=== PATIENT | female | born 1975 | race Caucasian/White ===

== ENCOUNTER 2016-08-04 19:52 | Emergency (ER) | payer SELFPAY ==
[2016-08-04] MEDS ORDERED: NORMAL SALINE 1000 ML 1,000 ML IV PRN (21:34)
[2016-08-04] MEDS ORDERED: MORPHINE SULFATE 10 MG/ML INJ IV ONE (21:34)
[2016-08-04] MEDS ORDERED: ONDANSETRON HCL INJ/PF 4 MG/2 ML SDV IV ONE (21:34)
--- NOTE | 2016-08-04 21:38 | ER Document Report ---
ED GI/ - General Chief Complaint: Abdominal Pain Stated Complaint: ABDOMINAL PAIN Time Seen by Provider: 08/04/16 21:27 Mode of Arrival: Ambulatory Information source: Patient TRAVEL OUTSIDE OF THE [place] IN LAST 30 DAYS: No - HPI Patient complains to provider of: Abdominal pain, Vomiting Onset: This morning Timing/Duration: Sudden Quality of pain: Achy Severity at maximum: Moderate Severity in ED: Moderate Pain Level: 3 Location: RLQ Vaginal bleeding (Compared to normal period): None Associated symptoms: Nausea, Vomiting Exacerbated by: Denies Relieved by: Denies Similar symptoms previously: No Recently seen / treated by doctor: No Notes: 08/04/16 21:36 Is a 40-year-old female who presents to the emergency room complaining of right lower quadrant abdominal pain with nausea and vomiting that has been going on for the past hours, she denies any urinary symptoms, no vaginal discharge or irregular bleeding, no sick contacts, no questionable food intake, no fever, patient has a history of a partial hysterectomy and a cholecystectomy - Related Data Allergies/Adverse Reactions: dicyclomine [From Bentyl] Allergy (Verified 08/04/16 20:16) ketorolac [From Toradol] Allergy (Verified 08/04/16 20:16) metoclopramide [From Reglan] Allergy (Verified 08/04/16 20:16) promethazine [From Phenergan] Allergy (Verified 08/04/16 20:16) Sulfa (Sulfonamide Antibiotics) Allergy (Verified 08/04/16 20:16) tramadol [From Ultram] Allergy (Verified 08/04/16 20:16) Past Medical History - General Information source: Patient - Social History Smoking Status: Never Smoker Family History: Reviewed & Not Pertinent Renal/ Medical History: Denies: Hx Peritoneal Dialysis Review of Systems - Review of Systems Constitutional: No symptoms reported EENT: No symptoms reported Cardiovascular: No symptoms reported Respiratory: No symptoms reported Gastrointestinal: See HPI Genitourinary: No symptoms reported Female Genitourinary: No symptoms reported Musculoskeletal: No symptoms reported Skin: No symptoms reported Hematologic/Lymphatic: No symptoms reported Neurological/Psychological: No symptoms reported -: Yes All other systems reviewed and negative Physical Exam - Vital signs Vitals: Temp Pulse Resp BP Pulse Ox 98.4 F 86 18 132/76 H 98 08/05/16 00:05 08/05/16 00:05 08/05/16 00:05 08/05/16 00:08/05/16 00:05 Interpretation: Normal - General General appearance: Appears well, Alert - HEENT Head: Normocephalic, Atraumatic Eyes: Normal Pupils: PERRL - Respiratory Respiratory status: No respiratory distress Chest status: Nontender Breath sounds: Normal Chest palpation: Normal - Cardiovascular Rhythm: Regular Heart sounds: Normal auscultation Murmur: No - Abdominal Inspection: Normal Distension: No distension Bowel sounds: Normal Tenderness: Tender - Right Lower quadrant tenderness Organomegaly: No organomegaly - Back Back: Normal, Nontender - Extremities General upper extremity: Normal inspection, Nontender, Normal color, Normal ROM , Normal temperature General lower extremity: Normal inspection, Nontender, Normal color, Normal ROM , Normal temperature, Normal weight bearing. No: Adam's sign - Neurological Neuro grossly intact: Yes Cognition: Normal Orientation: AAOx4 [place] Coma Scale Eye Opening: Spontaneous [place] Coma Scale Verbal: Oriented Agustin Coma Scale Motor: Obeys Commands Agustin Coma Scale Total: 15 Speech: Normal Motor strength normal: LUE, RUE, LLE, RLE Sensory: Normal - Psychological Associated symptoms: Normal affect, Normal mood - Skin Skin Temperature: Warm Skin Moisture: Dry Skin Color: Normal Location of irregularity: Extremities - Bilateral upper extremities with several scabbed excoriated wounds, no drainage, no erythema Course - Re-evaluation Re-evalutation: 08/05/16 00:00 Several attempts were made to gain IV access, however these attempts were unsuccessful, patient is approximately 15 minutes from going to CAT scan and now wishes to sign out AGAINST MEDICAL ADVICE, I had a discussion with patient regarding this and she stated she was willing to stay and have a CAT scan completed, however soon as I walked out of the room she asked nursing staff for the form was for her to sign out AGAINST MEDICAL ADVICE, while I was speaking with patient I discussed with her the complications that could be associated with appendicitis as far as a rupture, sepsis, debility and/or , also discussed other abdominal pathology that could have serious and/or fatal complications, she stated she knew this was a complication and she was willing to risk this, that she will follow-up with her primary care provider in the morning, so I believe this is a poor decision on patient's part I do not believe she lacks the capacity to sign out AGAINST MEDICAL ADVICE and therefore was to do so but advised to return at any time should she wish to complete her medical care - Vital Signs Vital signs: Temp Pulse Resp BP Pulse Ox 98.4 F 86 18 132/76 H 98 08/05/16 00:05 08/05/16 00:05 08/05/16 00:05 08/05/16 00:05 08/05/16 00:05 - Laboratory Result Diagrams: 08/04/16 22:55 08/04/16 22:55 Laboratory results interpreted by me: 08/04/16 08/04/16 22:55 22:55 Hgb 11.3 L Hct 33.9 L RDW 14.3 H Eosinophils % 6.7 H Glucose 242 H AST 50 H Discharge - Discharge Clinical Impression: Abdominal pain Qualifiers: Abdominal location: right lower quadrant Qualified Code(s): R10.31 - Right lower quadrant pain Disposition: AGAINST MEDICAL ADVICE Instructions: Abdominal Pain ([facility]), Observation for Appendicitis ([facility]) Additional Instructions: You are indicating that you wish to sign out AGAINST MEDICAL ADVICE prior to having your evaluations completed. We discussed the risks and complications associated with doing so. You are welcome to return to the emergency room at any time should you wish to complete your evaluation and care.
[2016-08-04 23:22] LABS: ALANINE AMINOTRANSFERASE 35 U/L (9-52); ALKALINE PHOSPHATASE 46 U/L (38-126); ANION GAP 14 (5-19); ASPARTATE AMINO TRANSFERASE 50 U/L (14-36); BILIRUBIN,DIRECT 0.3 mg/dL (0.0-0.4); BILIRUBIN,TOTAL 0.5 mg/dL (0.2-1.3); BLOOD UREA NITROGEN 10 mg/dL (7-20); CALCIUM 9.1 mg/dL (8.4-10.2); CARBON DIOXIDE 22 mmol/L (22-30); CHLORIDE 102 mmol/L (98-107); CREATININE RESULT 0.63 mg/dL (0.52-1.25); GLUCOSE 242 mg/dL (75-110); LIPASE 69.3 U/L (23-300); POTASSIUM 3.9 mmol/L (3.6-5.0); TOTAL PROTEIN 7.8 g/dL (6.3-8.2)
[2016-08-04 23:24] LABS: ABSOLUTE BASOPHILS # (AUTO) 0.1 10^3/uL (0.0-0.2); ABSOLUTE EOSINOPHILS # (AUTO) 0.4 10^3/uL (0.0-0.6); ABSOLUTE LYMPHOCYTES (AUTO) 1.3 10^3/uL (0.5-4.7); ABSOLUTE MONOCYTES (AUTO) 0.5 10^3/uL (0.1-1.4); ABSOLUTE NEUT (AUTO) 3.5 10^3/uL (1.7-8.2); BASOPHILS % (AUTO) 0.9 % (0-2); EOSINOPHILS % (AUTO) 6.7 % (0-6); HEMATOCRIT 33.9 % (36.0-47.0); HEMOGLOBIN 11.3 g/dL (12.0-15.5); LYMPHOCYTES % (AUTO) 22.4 % (13-45); MEAN CORPUSCULAR HEMOGLOBIN 28.6 pg (27.0-33.4); MEAN CORPUSCULAR HGB CONC 33.4 g/dL (32.0-36.0); MEAN CORPUSCULAR VOLUME 86 fl (80-97); MONOCYTES % (AUTO) 9.3 % (3-13); RED BLOOD COUNT 3.97 10^6/uL (3.72-5.28); RED CELL DISTRIBUTION WIDTH 14.3 % (11.5-14.0); SEGMENTED NEUTROPHILS % (AUTO) 60.7 % (42-78); WHITE BLOOD COUNT 5.8 10^3/uL (4.0-10.5)
[2016-08-04] MEDS ORDERED: OXYCODONE-ACETAMINOPHEN 5-325 MG TABLET PO ONE (23:59)
[2016-08-04] MEDS ORDERED: ONDANSETRON 4 MG TAB.RAPDIS SL ONE (23:59)
[2016-08-05 00:34] VITALS: BP 132/76
== END 2016-08-05 00:10 | disposition left against medical advice (07) ==
LOC: ER 19:52
DX: R10.31 Right lower quadrant pain (principal); R11.2 Nausea with vomiting, unspecified
CPT/HCPCS: 36415; 80053; 83690; 85025; 99284

== ENCOUNTER 2016-08-30 14:39 | Emergency (ER) | payer SELFPAY ==
--- NOTE | 2016-08-30 15:29 | ER Document Report ---
ED Medical Screen (RME) - General Mode of Arrival: Ambulatory Information source: Patient TRAVEL OUTSIDE OF THE [place] IN LAST 30 DAYS: No <BURT ALONZO - Last Filed: 08/30/16 15:23> <JOSE DOMINGUEZ - Last Filed: 08/31/16 14:40> - General Chief Complaint: Abdominal Pain Stated Complaint: ABDOMINAL PAIN/VOMITING Time Seen by Provider: 08/30/16 15:23 Notes: 40 yo female presnets to ed for abdominal pain for 9 hourswith nausea and vomitingx4 today. States she has passed out x2 due to the pain. Stated she has had pain like this before and was diagnosed with c-diff a year ago but no diarrhea at this time. States she just finished a regime of Cipro 2 days ago for UTI. Hysterectomy in 2009 but still has ovaries. Hx of DM type 2 HTN, asthma, RLS, and depression. I assessed this patient in [facility]. She will have a history and physical and further treatment in the ED by another provider. (BURT ALONZO) - Related Data Allergies/Adverse Reactions: dicyclomine [From Bentyl] Allergy (Verified 08/30/16 14:47) ketorolac [From Toradol] Allergy (Verified 08/30/16 14:47) metoclopramide [From Reglan] Allergy (Verified 08/30/16 14:47) promethazine [From Phenergan] Allergy (Verified 08/30/16 14:47) Sulfa (Sulfonamide Antibiotics) Allergy (Verified 08/30/16 14:47) tramadol [From Ultram] Allergy (Verified 08/30/16 14:47) Past Medical History Renal/ Medical History: Denies: Hx Peritoneal Dialysis <BURT ALONZO - Last Filed: 08/30/16 15:23> Course - Laboratory Result Diagrams: 08/30/16 18:57 08/30/16 18:57 <JOSE DOMINGUEZ - Last Filed: 08/31/16 14:40> - Vital Signs Vital signs: Temp Pulse Resp BP Pulse Ox 98.3 F 79 20 132/94 H 100 08/30/16 15:37 08/30/16 15:37 08/30/16 15:37 08/30/16 15:37 08/30/16 15:37 - Laboratory Laboratory results interpreted by me: 08/30/16 08/30/16 08/30/16 15:45 18:32 18:57 RDW 14.3 H Eosinophils % 6.3 H Glucose POC Glucose 164 H AST Urine Protein 30 H 08/30/16 18:57 RDW Eosinophils % Glucose 172 H POC Glucose AST 42 H Urine Protein Doctor's Discharge <BURT ALONZO - Last Filed: 08/30/16 15:23> <JOSE DOMINGUEZ - Last Filed: 08/31/16 14:40> - Discharge Clinical Impression: Lower abdominal pain, Vomiting and diarrhea Condition: Stable Disposition: HOME, SELF-CARE Additional Instructions: Take the medication given for nausea, start with bland foods, drink plenty of fluids and rest. Your cat scan and ultrasound show no concerning abnormalities. This is probably viral and should resolve with time. Follow up with Primary Care. Return to the ED for any concerning symptoms - see below Observation for Appendicitis At this time, the abdominal pain does not seem to be appendicitis. Our next "test" will be passage of time. If you have early appendicitis, signs will appear to help us make the diagnosis. Most of the time, the pain goes away. In these cases, the pain is usually due to a virus in the lymph glands near the appendix, or due to an ovarian cyst or ovulation. Unless the pain is gone, you should come back for a recheck. This is usually done in 8 to 12 hours. Be sure you understand your follow-up instructions. Come back immediately if: (1) the pain becomes much more severe and sharply increases with movement or coughing, (2) vomiting becomes frequent, (3) there is blood in the vomit, urine, or bowel movements, (4) there are shaking chills or fever, or (5) the abdomen becomes more distended or swollen. Prescriptions: Ondansetron [Zofran Odt 4 mg Tablet] 1 - 2 tab PO Q4H PRN #20 tab.rapdis PRN Reason: For Nausea/Vomiting Referrals: [facility] [Provider Group] - Follow up as needed KAT LI MD [ACTIVE STAFF] - Follow up as needed FREDDIE RAVI MD [ACTIVE STAFF] - Follow up as needed DEJA GOLDMAN MD [ACTIVE STAFF] - Follow up as needed
[2016-08-30 15:38] VITALS: BP 132/94
[2016-08-30 16:08] LABS: APPEARANCE,URINE SLIGHTLY-CLOUDY; BILIRUBIN,URINE NEGATIVE (NEGATIVE); GLUCOSE, URINE NEGATIVE (NEGATIVE); KETONES,URINE NEGATIVE (NEGATIVE); LEUKOCYTE ESTERASE,URINE NEGATIVE (NEGATIVE); NITRITE,URINE NEGATIVE (NEGATIVE); PROTEIN,URINE 30 mg/dL (NEGATIVE); URINE SPECIFIC GRAVITY 1.026; UROBILINOGEN,URINE NEGATIVE mg/dL (<2.0)
[2016-08-30 16:25] LABS: BACTERIA,URINE TRACE /HPF
[2016-08-30] MEDS ORDERED: MORPHINE SULFATE 10 MG/ML INJ IV ONE ×3 (17:00→22:10)
[2016-08-30] MEDS ORDERED: ONDANSETRON HCL INJ/PF 4 MG/2 ML SDV IV ONE (17:00)
--- NOTE | 2016-08-30 17:00 | ER Document Report ---
ED GI/ <PRISCILLA SCRUGGS - Last Filed: 08/31/16 04:43> - General Mode of Arrival: Ambulatory Information source: Patient TRAVEL OUTSIDE OF THE [place] IN LAST 30 DAYS: No - HPI Patient complains to provider of: Abdominal pain, Vomiting Onset: This morning Timing/Duration: Persistent Quality of pain: Achy, Cramping, Sharp Severity at maximum: Severe Severity in ED: Severe Pain Level: 5 Location: LLQ, RLQ Vaginal bleeding (Compared to normal period): None LMP: hysterectomy Associated symptoms: Nausea, Vomiting Exacerbated by: Movement, Walking, Coughing Relieved by: Denies Similar symptoms previously: Yes Recently seen / treated by doctor: No <BURT ALONZO - Last Filed: 08/31/16 09:38> - General Chief Complaint: Abdominal Pain Stated Complaint: ABDOMINAL PAIN/VOMITING Time Seen by Provider: 08/30/16 15:23 Notes: 1-year-old female presents to ED for abdominal pain nausea and vomiting 9 hours. She states she vomited 4 times today. States she tested 2 for the pain. States she had pain like this before about a year ago when she was diagnosed with C. difficile but does not have any diarrhea at this time. States she just finished a resume for Cipro 2 days ago for UTI. (BURT ALONZO) - Related Data Allergies/Adverse Reactions: dicyclomine [From Bentyl] Allergy (Verified 08/30/16 14:47) ketorolac [From Toradol] Allergy (Verified 08/30/16 14:47) metoclopramide [From Reglan] Allergy (Verified 08/30/16 14:47) promethazine [From Phenergan] Allergy (Verified 08/30/16 14:47) Sulfa (Sulfonamide Antibiotics) Allergy (Verified 08/30/16 14:47) tramadol [From Ultram] Allergy (Verified 08/30/16 14:47) Past Medical History - General Information source: Patient - Social History Smoking Status: Former Smoker Cigarette use (# per day): No Chew tobacco use (# tins/day): No Smoking Education Provided: No Frequency of alcohol use: None Drug Abuse: None Lives with: Family Family History: DM, Hypertension Patient has suicidal ideation: No Patient has homicidal ideation: No - Past Medical History Cardiac Medical History: Reports: Hx Hypertension Pulmonary Medical History: Reports: Hx Asthma EENT Medical History: Reports: None Neurological Medical History: Reports: None Endocrine Medical History: Reports: Hx Diabetes Mellitus Type 2 Renal/ Medical History: Reports: None Malignancy Medical History: Reports: None Musculoskeltal Medical History: Reports Hx Arthritis, Reports Hx Restless Leg Syndrome Skin Medical History: Reports None Psychiatric Medical History: Reports: Hx Depression Traumatic Medical History: Reports: None Infectious Medical History: Reports: None Past Surgical History: Reports: Hx Cholecystectomy, Hx Hysterectomy - Immunizations Immunizations up to date: Yes Hx Diphtheria, Pertussis, Tetanus Vaccination: Yes <BURT ALONZO - Last Filed: 08/31/16 09:38> Review of Systems - Review of Systems Constitutional: No symptoms reported EENT: No symptoms reported Cardiovascular: No symptoms reported Respiratory: No symptoms reported Gastrointestinal: Abdominal pain, Nausea, Vomiting Genitourinary: No symptoms reported Female Genitourinary: No symptoms reported Musculoskeletal: No symptoms reported Skin: No symptoms reported Hematologic/Lymphatic: No symptoms reported Neurological/Psychological: No symptoms reported -: Yes All other systems reviewed and negative <BURT ALONZO - Last Filed: 08/31/16 09:38> Physical Exam - Vital signs Interpretation: Normal - General General appearance: Appears well, Alert - HEENT Head: Normocephalic, Atraumatic Eyes: Normal Pupils: PERRL - Respiratory Respiratory status: No respiratory distress Chest status: Nontender Breath sounds: Normal Chest palpation: Normal - Cardiovascular Rhythm: Regular Heart sounds: Normal auscultation Murmur: No - Abdominal Inspection: Normal Distension: No distension Bowel sounds: Normal Tenderness: Tender. No: McBurney's point, Cyr's sign, Guarding, Rebound Organomegaly: No organomegaly - Back Back: Normal, Nontender - Extremities General upper extremity: Normal inspection, Nontender, Normal color, Normal ROM , Normal temperature General lower extremity: Normal inspection, Nontender, Normal color, Normal ROM , Normal temperature, Normal weight bearing. No: Adam's sign - Neurological Neuro grossly intact: Yes Cognition: Normal Orientation: AAOx4 Agust[place] Coma Scale Eye Opening: Spontaneous [place] Coma Scale Verbal: Oriented [place] Coma Scale Motor: Obeys Commands Agustin Coma Scale Total: 15 Speech: Normal Motor strength normal: LUE, RUE, LLE, RLE Sensory: Normal - Psychological Associated symptoms: Normal affect, Normal mood - Skin Skin Temperature: Warm Skin Moisture: Dry Skin Color: Normal <BURT ALONZO - Last Filed: 08/31/16 09:38> - Vital signs Vitals: Temp Pulse Resp BP Pulse Ox 99.0 F 76 18 125/81 98 08/30/16 14:48 08/30/16 14:48 08/30/16 14:48 08/30/16 14:48 08/30/16 14:48 Course - Laboratory Result Diagrams: 08/30/16 18:57 08/30/16 18:57 <PRISCILLA SCRUGGS - Last Filed: 08/31/16 04:43> - Laboratory Result Diagrams: 08/30/16 18:57 08/30/16 18:57 <BURT ALONZO - Last Filed: 08/31/16 09:38> - Re-evaluation Re-evalutation: 08/30/16 CBC, chemistry, urinalysis are unremarkable. CAT scan was already ordered and is resulted, shows normal appendix, no acute abnormalities of the abdomen and pelvis. Reviewed this with patient and significant other at bedside. Patient still complaining of right lower quadrant pain, this is actually nonspecific on reexamination with no focal tenderness or guarding suggesting acute abdominal abnormality. I actually of a very low suspicion of acute abdomen at this time. Patient is very well-appearing on examination. Unable to visualize ovaries on CAT scan, patient insists that she had a partial hysterectomy and she wants her ovaries evaluated, I discussed how her presentation is low risk for ovarian torsion without any current symptoms, patient still request that she get the ultrasound. Ultrasound performed, shows no ovaries, uterus, or other abnormality. Patient is obese, it is possible these could not be visualized, I did discuss this with patient, however again I have very low suspicion of any acute abnormality with reexamination of patient, unremarkable abdomen now, suspect patient has viral syndrome with vomiting, diarrhea, and abdominal pain. Patient asking for referral to both [facility] and primary care, this was provided along with [facility] for nausea/vomiting, discussed rehydration, follow-up , return precautions, patient states understanding and agreement. (PRISCILLA SCRUGGS) 08/30/16 19:18 Report given to Priscilla DEE concerning history physical and assessment up to this point. Patient is awaiting lab results after difficulty getting her labs so that she can get her CT abdomen and pelvis. She has been medicated with morphine 4 mg 2 Benadryl 50 mg IV and Zofran 8 mg IV. (BURT ALONZO) - Vital Signs Vital signs: Temp Pulse Resp BP Pulse Ox 98.3 F 79 20 132/94 H 100 08/30/16 15:37 08/30/16 15:37 08/30/16 15:37 08/30/16 15:37 08/30/16 15:37 - Laboratory Laboratory results interpreted by me: 08/30/16 08/30/16 08/30/16 15:45 18:32 18:57 RDW 14.3 H Eosinophils % 6.3 H Glucose POC Glucose 164 H AST Urine Protein 30 H 08/30/16 18:57 RDW Eosinophils % Glucose 172 H POC Glucose AST 42 H Urine Protein Discharge <PRISCILLA SCRUGGS - Last Filed: 08/31/16 04:43> <BURT ALONZO - Last Filed: 08/31/16 09:38> - Discharge Clinical Impression: Lower abdominal pain, Vomiting and diarrhea Condition: Stable Disposition: HOME, SELF-CARE Additional Instructions: Take the medication given for nausea, start with bland foods, drink plenty of fluids and rest. Your cat scan and ultrasound show no concerning abnormalities. This is probably viral and should resolve with time. Follow up with Primary Care. Return to the ED for any concerning symptoms - see below Observation for Appendicitis At this time, the abdominal pain does not seem to be appendicitis. Our next "test" will be passage of time. If you have early appendicitis, signs will appear to help us make the diagnosis. Most of the time, the pain goes away. In these cases, the pain is usually due to a virus in the lymph glands near the appendix, or due to an ovarian cyst or ovulation. Unless the pain is gone, you should come back for a recheck. This is usually done in 8 to 12 hours. Be sure you understand your follow-up instructions. Come back immediately if: (1) the pain becomes much more severe and sharply increases with movement or coughing, (2) vomiting becomes frequent, (3) there is blood in the vomit, urine, or bowel movements, (4) there are shaking chills or fever, or (5) the abdomen becomes more distended or swollen. Prescriptions: Ondansetron [Zofran Odt 4 mg Tablet] 1 - 2 tab PO Q4H PRN #20 tab.rapdis PRN Reason: For Nausea/Vomiting Referrals: [facility] [Provider Group] - Follow up as needed FREDDIE RAVI MD [ACTIVE STAFF] - Follow up as needed KAT LI MD [ACTIVE STAFF] - Follow up as needed DEJA GOLDMAN MD [ACTIVE STAFF] - Follow up as needed
[2016-08-30] MEDS ORDERED: DIPHENHYDRAMINE HCL 50 MG/ML VIAL IV ONE ×3 (17:01→22:10)
[2016-08-30] MEDS ORDERED: NORMAL SALINE 1000 ML 1,000 ML IV ONE ×2 (19:15)
[2016-08-30 19:24] LABS: ABSOLUTE BASOPHILS # (AUTO) 0.1 10^3/uL (0.0-0.2); ABSOLUTE EOSINOPHILS # (AUTO) 0.3 10^3/uL (0.0-0.6); ABSOLUTE LYMPHOCYTES (AUTO) 1.2 10^3/uL (0.5-4.7); ABSOLUTE MONOCYTES (AUTO) 0.5 10^3/uL (0.1-1.4); ABSOLUTE NEUT (AUTO) 3.4 10^3/uL (1.7-8.2); BASOPHILS % (AUTO) 1.1 % (0-2); EOSINOPHILS % (AUTO) 6.3 % (0-6); HEMATOCRIT 36.1 % (36.0-47.0); HGB HCT DIFFERENCE -0.1; LYMPHOCYTES % (AUTO) 21.9 % (13-45); MEAN CORPUSCULAR HEMOGLOBIN 27.7 pg (27.0-33.4); MEAN CORPUSCULAR HGB CONC 33.1 g/dL (32.0-36.0); MEAN CORPUSCULAR VOLUME 84 fl (80-97); RED BLOOD COUNT 4.31 10^6/uL (3.72-5.28); RED CELL DISTRIBUTION WIDTH 14.3 % (11.5-14.0); SEGMENTED NEUTROPHILS % (AUTO) 61.7 % (42-78); WHITE BLOOD COUNT 5.4 10^3/uL (4.0-10.5)
[2016-08-30 19:48] LABS: ALANINE AMINOTRANSFERASE 48 U/L (9-52); ALBUMIN 4.3 g/dL (3.5-5.0); ALKALINE PHOSPHATASE 43 U/L (38-126); ANION GAP 15 (5-19); ASPARTATE AMINO TRANSFERASE 42 U/L (14-36); BILIRUBIN,DIRECT 0.4 mg/dL (0.0-0.4); BILIRUBIN,TOTAL 0.5 mg/dL (0.2-1.3); BLOOD UREA NITROGEN 11 mg/dL (7-20); CALCIUM 9.4 mg/dL (8.4-10.2); CARBON DIOXIDE 22 mmol/L (22-30); CHLORIDE 101 mmol/L (98-107); CREATININE RESULT 0.63 mg/dL (0.52-1.25); GLUCOSE 172 mg/dL (75-110); SODIUM 137.8 mmol/L (137-145); TOTAL PROTEIN 8.1 g/dL (6.3-8.2)
--- NOTE | 2016-08-30 21:54 | RADIOLOGY REPORT (SQ) ---
EXAM DESCRIPTION: CT ABD/PELVIS WITH IV ORAL COMPLETED DATE/TIME: 08/30/2016 8:17 pm REASON FOR STUDY: rlq abdominal pain COMPARISON: None. TECHNIQUE: CT scan of the abdomen and pelvis performed using helical scanning technique with dynamic intravenous contrast injection. No oral contrast. Images reviewed with lung, soft tissue, and bone windows. Reconstructed coronal and sagittal MPR images reviewed. Delayed images for evaluation of the urinary system also acquired. All images stored on PACS. All CT scanners at this facility use dose modulation, iterative reconstruction, and/or weight based d osing when appropriate to reduce radiation dose to as low as reasonably achievable (ALARA). [facility]: Dose Right [facility]: CareDose [facility]: Dose Right [facility]: Teradose 4D [facility]: [employer] CONTRAST TYPE AND DOSE: contrast/concentration: Isovue 370.00 mg/ml; Total Contrast Delivered: 100.0 ml; Total Saline Delivered: 72.0 ml RENAL FUNCTION: GFR > 60. RADIATION DOSE: Up-to-date CT equipment and radiation dose reduction techniques were employed. CTDIv ol: 20.9 - 29.9 mGy. DLP: 2641 mGy-cm.. LIMITATIONS: None. FINDINGS: LOWER CHEST: No significant findings. No nodules or infiltrates. LIVER: Normal size. No masses or dilated ducts. SPLEEN: Normal size. No focal lesions. PANCREAS: No masses. No significant calcifications. No adjacent inflammation or peripancreatic fluid collections. Pancreatic duct not dilated. GALLBLADDER: Surgically absent. ADRENAL GLANDS: No significant masses or asymmetry. RIGHT KIDNEY AND URETER: No solid masses. No significant calcifications. No hydronephrosis or hyd roureter. LEFT KIDNEY AND URETER: No solid masses. No significant calcifications. No hydronephrosis or hydr oureter. AORTA AND VESSELS: No aneurysm. No dissection. Renal arteries, SMA, celiac without stenosis. RETROPERITONEUM: No retroperitoneal adenopathy, hemorrhage or masses. BOWEL AND PERITONEAL CAVITY: No masses or inflammatory changes. No free fluid or peritoneal masses. APPENDIX: Normal. PELVIS: No mass or free fluid. Normal bladder. ABDOMINAL WALL: Prior hysterectomy. No hernias. BONES: No significant or acute findings. OTHER: No other significant finding. IMPRESSION: NO ACUTE FINDING IN THE ABDOMEN OR PELVIS ON CT SCAN WITH IV CONTRAST. Normal appendix identified. TECHNICAL DOCUMENTATION: JOB ID: [id number] Quality ID # [id number]: Final reports with documentation of one or more dose reduction techniques (e.g., Au tomated exposure control, adjustment of the mA and/or kV according to patient size, use of iterative reconstruction technique) 2010 [email or web address]- All Rights Reserved
--- NOTE | 2016-08-30 23:46 | RADIOLOGY REPORT (SQ) ---
EXAM DESCRIPTION: U/S NON OB PEL TV W/DOPPLER COMPLETED DATE/TIME: 08/30/2016 11:17 pm REASON FOR STUDY: RLQ pain, hx cysts, vomiting COMPARISON: None. TECHNIQUE: Dynamic and static grayscale images acquired of the pelvis via transvaginal approach and recorded on PACS. Additional selected color Doppler and spectral images recorded. LIMITATIONS: None. FINDINGS: No uterus or ovaries visualized. No free fluid. IMPRESSION: No uterus or ovaries visualized. No free fluid. TECHNICAL DOCUMENTATION: JOB ID: [id number] [employer]- All Rights Reserved
[2016-08-31] MEDS ORDERED: ONDANSETRON ODT 4 MG TAB (6 TAB/DSPK) PO PRN (00:02)
[2016-08-31] MEDS ORDERED: DIPHENHYDRAMINE HCL 50 MG/ML VIAL IV ONE (00:10)
== END 2016-08-31 00:28 | disposition home or self-care (01) ==
LOC: ER 14:39
DX: R10.30 Lower abdominal pain, unspecified (principal); R11.2 Nausea with vomiting, unspecified; R19.7 Diarrhea, unspecified; R05 Cough; I10 Essential (primary) hypertension; E11.9 Type 2 diabetes mellitus without complications; Z88.2 Allergy status to sulfonamides; Z87.891 Personal history of nicotine dependence; Z90.49 Acquired absence of other specified parts of digestive tract; Z90.710 Acquired absence of both cervix and uterus
CPT/HCPCS: 96376; 99284; 96374; 96375; 36415; 82962; 83690; 85025; 80053; 81001; 76830; 93976; 74177; J1200 ×2; J2270; J2405

== ENCOUNTER 2016-09-08 21:27 | Emergency (ER) | payer SELFPAY ==
[2016-09-08 22:06] VITALS: BP 113/81
[2016-09-09 02:31] LABS: ABSOLUTE BASOPHILS # (AUTO) 0.1 10^3/uL (0.0-0.2); ABSOLUTE EOSINOPHILS # (AUTO) 0.5 10^3/uL (0.0-0.6); ABSOLUTE LYMPHOCYTES (AUTO) 1.7 10^3/uL (0.5-4.7); ABSOLUTE MONOCYTES (AUTO) 0.7 10^3/uL (0.1-1.4); ABSOLUTE NEUT (AUTO) 3.8 10^3/uL (1.7-8.2); BASOPHILS % (AUTO) 1.3 % (0-2); HEMATOCRIT 35.4 % (36.0-47.0); HEMOGLOBIN 11.8 g/dL (12.0-15.5); LYMPHOCYTES % (AUTO) 25.5 % (13-45); MEAN CORPUSCULAR HEMOGLOBIN 27.8 pg (27.0-33.4); MEAN CORPUSCULAR HGB CONC 33.3 g/dL (32.0-36.0); MEAN CORPUSCULAR VOLUME 84 fl (80-97); MONOCYTES % (AUTO) 10.1 % (3-13); RED BLOOD COUNT 4.24 10^6/uL (3.72-5.28); RED CELL DISTRIBUTION WIDTH 14.5 % (11.5-14.0); SEGMENTED NEUTROPHILS % (AUTO) 56.1 % (42-78); WHITE BLOOD COUNT 6.7 10^3/uL (4.0-10.5)
[2016-09-09] MEDS ORDERED: ONDANSETRON HCL INJ/PF 4 MG/2 ML SDV IV ONE (02:33)
[2016-09-09] MEDS ORDERED: ACETAMINOPHEN 325 MG TABLET PO ONE (02:33)
[2016-09-09 02:50] LABS: ALANINE AMINOTRANSFERASE 31 U/L (9-52); ALBUMIN 4.2 g/dL (3.5-5.0); ALKALINE PHOSPHATASE 43 U/L (38-126); ANION GAP 15 (5-19); ASPARTATE AMINO TRANSFERASE 28 U/L (14-36); BILIRUBIN,DIRECT 0.3 mg/dL (0.0-0.4); BILIRUBIN,TOTAL 0.5 mg/dL (0.2-1.3); BLOOD UREA NITROGEN 18 mg/dL (7-20); CALCIUM 9.4 mg/dL (8.4-10.2); CARBON DIOXIDE 23 mmol/L (22-30); CHLORIDE 101 mmol/L (98-107); CREATININE RESULT 0.82 mg/dL (0.52-1.25); GLUCOSE 236 mg/dL (75-110); SODIUM 138.8 mmol/L (137-145); TOTAL PROTEIN 7.7 g/dL (6.3-8.2)
[2016-09-09] MEDS ORDERED: DIPHENHYDRAMINE HCL 25 MG CAPSULE PO ONE (02:56)
--- NOTE | 2016-09-09 02:56 | ER Document Report ---
ED General - General Chief Complaint: Abdominal Pain Stated Complaint: ABDOMINAL PAIN,VOMITING Time Seen by Provider: 09/09/16 01:31 TRAVEL OUTSIDE OF THE [place] IN LAST 30 DAYS: No - HPI Patient complains to provider of: Lower quadrant abdominal pain Notes: Patient coming in for evaluation of abdominal pain states mostly diffuse however can localize in the right lower quadrant. Denies any fevers chills diarrhea. Patient states she is having some nausea. Patient also states that she is having difficulty in urinating states some mild urinary incontinence. Patient otherwise denies any fevers has any back pain denies any numbness or tingling. Patient denies any trauma denies any recent travel. Patient recently evaluated for similar abdominal pain with the ultrasound and CT scan showing no acute pathology. - Related Data Allergies/Adverse Reactions: dicyclomine [From Bentyl] Allergy (Verified 09/09/16 01:52) hydrocodone Allergy (Verified 09/09/16 01:52) ketorolac [From Toradol] Allergy (Verified 09/09/16 01:52) metoclopramide [From Reglan] Allergy (Verified 09/09/16 01:52) promethazine [From Phenergan] Allergy (Verified 09/09/16 01:52) Sulfa (Sulfonamide Antibiotics) Allergy (Verified 09/09/16 01:52) tramadol [From Ultram] Allergy (Verified 09/09/16 01:52) Home Medications: Current Home Medications Fluoxetine HCl [Prozac] 40 mg PO DAILY 09/09/16 [History] Lisinopril [Lisinopril] 20 mg PO DAILY 09/09/16 [History] Metformin HCl [Glucophage] 850 mg PO BID 09/09/16 [History] Pantoprazole Sodium [Protonix] 40 mg PO DAILY 09/09/16 [History] Past Medical History - Social History Smoking Status: Unknown if Ever Smoked Family History: DM, Hypertension Patient has suicidal ideation: No Patient has homicidal ideation: No - Past Medical History Cardiac Medical History: Reports: Hx Hypertension Pulmonary Medical History: Reports: Hx Asthma Endocrine Medical History: Reports: Hx Diabetes Mellitus Type 2 Renal/ Medical History: Denies: Hx Peritoneal Dialysis Musculoskeltal Medical History: Reports Hx Arthritis Psychiatric Medical History: Reports: Hx Depression Past Surgical History: Reports: Hx Cholecystectomy, Hx Hysterectomy - Immunizations Immunizations up to date: Yes Hx Diphtheria, Pertussis, Tetanus Vaccination: Yes Review of Systems - Review of Systems Constitutional: No symptoms reported EENT: No symptoms reported Cardiovascular: No symptoms reported Respiratory: No symptoms reported Gastrointestinal: Abdominal pain Genitourinary: No symptoms reported Female Genitourinary: No symptoms reported Musculoskeletal: No symptoms reported Skin: No symptoms reported Hematologic/Lymphatic: No symptoms reported Neurological/Psychological: No symptoms reported -: Yes All other systems reviewed and negative Physical Exam - Vital signs Vitals: Temp Pulse Resp BP Pulse Ox 98.3 F 94 18 113/81 97 09/08/16 22:04 09/08/16 22:04 09/08/16 22:04 09/08/16 22:04 09/08/16 22:04 Interpretation: Normal - General General appearance: Appears well, Alert - HEENT Head: Normocephalic, Atraumatic Eyes: Normal Pupils: PERRL - Respiratory Respiratory status: No respiratory distress Chest status: Nontender Breath sounds: Normal Chest palpation: Normal - Cardiovascular Rhythm: Regular Heart sounds: Normal auscultation Murmur: No - Abdominal Inspection: Obese Distension: No distension Bowel sounds: Normal Tenderness: Nontender Organomegaly: No organomegaly - Back Back: Normal, Nontender - Extremities General upper extremity: Normal inspection, Nontender, Normal color, Normal ROM , Normal temperature General lower extremity: Normal inspection, Nontender, Normal color, Normal ROM , Normal temperature, Normal weight bearing. No: Adam's sign - Neurological Neuro grossly intact: Yes Cognition: Normal Orientation: AAOx4 Agustin Coma Scale Eye Opening: Spontaneous Agustin Coma Scale Verbal: Oriented Agustin Coma Scale Motor: Obeys Commands Agustin Coma Scale Total: 15 Speech: Normal Motor strength normal: LUE, RUE, LLE, RLE Sensory: Normal - Psychological Associated symptoms: Normal affect, Normal mood - Skin Skin Temperature: Warm Skin Moisture: Dry Skin Color: Normal Course - Re-evaluation Re-evalutation: 09/09/16 05:42 Informed patient that we would not be giving her any narcotic pain medication is that the patient added hydrocodone to her list of allergies tonight. Patient is allergic to multiple other narcotics. Patient given Tylenol for pain control. Upon being informed of this by nursing staff patient is requesting to leave AGAINST MEDICAL ADVICE. Upon discussing her decision to leave AGAINST MEDICAL ADVICE patient is requesting IV Benadryl. Patient states that she will receive Benadryl that she would stay I explained to The patient is that she took oral Tylenol she will take oral Benadryl. He refused the oral Benadryl at this time and still is requesting to leave AGAINST MEDICAL ADVICE. CBC has returned showing no signs of sepsis. Explained to the patient that leaving for the workup is done to result and disability or . Patient does state understanding. Patient will sign out. Plan patient is coming to the ER for fastidious games. Concerned she is specifically drug-seeking due to her specific drug request - Vital Signs Vital signs: Temp Pulse Resp BP Pulse Ox 98.3 F 94 18 113/81 97 09/08/16 22:04 09/08/16 22:04 09/08/16 22:04 09/08/16 22:04 09/08/16 22:04 - Laboratory Result Diagrams: 09/09/16 02:11 09/09/16 02:11 Laboratory results interpreted by me: 09/09/16 09/09/16 09/09/16 01:29 02:11 02:11 Hgb 11.8 L Hct 35.4 L RDW 14.5 H Eosinophils % 7.0 H Glucose 236 H Urine Glucose (UA) >=500 H Urine Ketones TRACE H Discharge - Discharge Clinical Impression: Malingering Abdominal pain Qualifiers: Abdominal location: generalized Qualified Code(s): R10.84 - Generalized abdominal pain Disposition: AGAINST MEDICAL ADVICE Instructions: Abdominal Pain ([facility]) Additional Instructions: You have decided not to proceed with further recommended testing or treatment to determine the cause of their symptoms. The risks and alternatives to the recommendation were discussed and the patient voiced understanding. You can return to the ER at any time to complete the testing or treatment..
[2016-09-09 03:07] LABS: APPEARANCE,URINE SLIGHTLY-CLOUDY; BILIRUBIN,URINE NEGATIVE (NEGATIVE); GLUCOSE, URINE >=500 mg/dL (NEGATIVE); KETONES,URINE TRACE mg/dL (NEGATIVE); LEUKOCYTE ESTERASE,URINE NEGATIVE (NEGATIVE); NITRITE,URINE NEGATIVE (NEGATIVE); PROTEIN,URINE NEGATIVE (NEGATIVE); URINE SPECIFIC GRAVITY 1.032; UROBILINOGEN,URINE NEGATIVE mg/dL (<2.0)
== END 2016-09-09 02:58 | disposition left against medical advice (07) ==
LOC: ER 21:27
DX: R10.84 Generalized abdominal pain (principal); Z76.5 Malingerer [conscious simulation]; R11.2 Nausea with vomiting, unspecified; R32 Unspecified urinary incontinence; E11.9 Type 2 diabetes mellitus without complications; I10 Essential (primary) hypertension; J45.909 Unspecified asthma, uncomplicated; Z88.8 Allergy status to other drugs, medicaments and biological substances; Z88.5 Allergy status to narcotic agent; Z88.2 Allergy status to sulfonamides; Z90.49 Acquired absence of other specified parts of digestive tract; Z90.710 Acquired absence of both cervix and uterus; Z53.29 Procedure and treatment not carried out because of patient's decision for other reasons
CPT/HCPCS: 99284; 96374; 36415; 83690; 85025; 80053; 81001; J2405

== ENCOUNTER 2017-11-10 02:10 | Emergency (ER) | payer SELFPAY ==
[2017-11-10] MEDS ORDERED: NORMAL SALINE 1000 ML 1,000 ML IV ONE ×2 (03:03→03:56)
[2017-11-10] MEDS ORDERED: OXYCODONE-ACETAMINOPHEN 5-325 MG TABLET PO ONE (03:04)
[2017-11-10] MEDS ORDERED: ONDANSETRON HCL INJ/PF 4 MG/2 ML SDV IV ONE ×2 (03:04→03:56)
[2017-11-10] MEDS ORDERED: DIPHENHYDRAMINE HCL 50 MG/ML VIAL IV ONE ×3 (03:04→04:48)
--- NOTE | 2017-11-10 03:05 | ER Document Report ---
ED GI/ - General Chief Complaint: Nausea/Vomiting Stated Complaint: ABDOMINAL PAIN Time Seen by Provider: 11/10/17 02:47 Notes: Patient is a 42-year-old female that comes to the emergency department for chief complaint of sudden onset of right lower abdomen and pelvic pain 6 hours ago that made her vomit several times. She states pain is sharp and throbbing. She had a normal bowel movement earlier tonight, nonbloody, she denies fever or chills, she denies flank pain. Past medical history partial hysterectomy, cholecystectomy, type 2 diabetes, hypertension. She denies vaginal discharge or bleeding. She does have a history of ovarian cysts. TRAVEL OUTSIDE OF THE [place] IN LAST 30 DAYS: No - Related Data Allergies/Adverse Reactions: dicyclomine [From Bentyl] Allergy (Verified 09/09/16 01:52) hydrocodone Allergy (Verified 09/09/16 01:52) ketorolac [From Toradol] Allergy (Verified 09/09/16 01:52) metoclopramide [From Reglan] Allergy (Verified 09/09/16 01:52) promethazine [From Phenergan] Allergy (Verified 09/09/16 01:52) Sulfa (Sulfonamide Antibiotics) Allergy (Verified 09/09/16 01:52) tramadol [From Ultram] Allergy (Verified 09/09/16 01:52) Past Medical History - General Information source: Patient - Social History Smoking Status: Never Smoker Frequency of alcohol use: None Drug Abuse: None Lives with: Family Family History: DM, Hypertension - Past Medical History Cardiac Medical History: Reports: Hx Hypertension Pulmonary Medical History: Reports: Hx Asthma Endocrine Medical History: Reports: Hx Diabetes Mellitus Type 2 Renal/ Medical History: Denies: Hx Peritoneal Dialysis Musculoskeletal Medical History: Reports Hx Arthritis Psychiatric Medical History: Reports: Hx Depression Past Surgical History: Reports: Hx Cholecystectomy, Hx Hysterectomy - Immunizations Immunizations up to date: Yes Hx Diphtheria, Pertussis, Tetanus Vaccination: Yes Review of Systems - Review of Systems Constitutional: No symptoms reported EENT: No symptoms reported Cardiovascular: No symptoms reported Respiratory: No symptoms reported Gastrointestinal: See HPI Genitourinary: See HPI Female Genitourinary: See HPI Musculoskeletal: No symptoms reported Skin: No symptoms reported Hematologic/Lymphatic: No symptoms reported Neurological/Psychological: No symptoms reported Physical Exam - Vital signs Vitals: Temp Pulse Resp BP Pulse Ox 97.8 F 88 18 140/87 H 99 11/10/17 02:34 11/10/17 02:34 11/10/17 02:34 11/10/17 02:34 11/10/17 02:34 - General General appearance: Appears well In distress: None - HEENT Head: Normocephalic, Atraumatic Eyes: Normal Extraocular movements intact: Yes Eyelashes: Normal Pupils: PERRL Mouth/Lips: Normal Mucous membranes: Normal Pharynx: Normal Neck: Normal - Respiratory Respiratory status: No respiratory distress Breath sounds: Normal. No: Decreased air movement, Wheezing - Cardiovascular Rhythm: Regular. No: Tachycardia Heart sounds: Normal auscultation, S1 appreciated, S2 appreciated - Abdominal Inspection: Normal Tenderness: Tender - Tenderness in the right pelvic area and mildly over the suprapubic area, no overt McBurney's point tenderness, abdomen soft and benign otherwise. - Back Back: Normal, Nontender. No: Tender - Extremities General upper extremity: Nontender, Normal ROM, Normal strength, Other - Excoriations to both forearms but no overt arrhythmia, induration, or fluctuance General lower extremity: Normal inspection, Nontender, Normal ROM, Normal strength. No: Tender - Neurological Orientation: AAOx4 Agustin Coma Scale Eye Opening: Spontaneous Agustin Coma Scale Verbal: Oriented Raymond Coma Scale Motor: Obeys Commands Agustin Coma Scale Total: 15 - Psychological Associated symptoms: Normal affect, Normal mood - Skin Skin Temperature: Warm Skin Moisture: Dry Skin Color: Normal Course - Re-evaluation Re-evalutation: Patient smiling and very well-appearing. She does have some right pelvic and suprapubic tenderness, denies discharge or bleeding, patient's history and symptoms are most suggestive of ovarian torsion. No McBurney's point tenderness specifically, lower suspicion of acute appendicitis. CBC unremarkable, chemistry shows hyperglycemia without acidosis, unremarkable otherwise. Urinalysis unremarkable. Ultrasound with no right ovary visualized , low suspicion of large cyst causing torsion, no free fluid, no concerning findings otherwise. On reevaluation patient had declined pain medication, except and nausea medication, and requested Benadryl for itching, states she itches frequently because of her cats but states she does not want to get rid of them. Patient states she has no pain at all in her abdomen on my reevaluation and she is asking to leave immediately. She tells me that she has frequent abdominal pain and even some vomiting occasionally ever since she had C. difficile and recovered from this. She does not have any diarrhea or fever, she states she does not have any C. difficile symptoms. She declines additional evaluation at all, states she is ready to leave. She does agree to follow-up with gastroenterology, and discussed return precautions, and provided with nausea medication. Stable at time of discharge. - Vital Signs Vital signs: Temp Pulse Resp BP Pulse Ox 97.8 F 88 18 140/87 H 99 11/10/17 02:34 11/10/17 02:34 11/10/17 02:34 11/10/17 02:34 11/10/17 02:34 - Laboratory Result Diagrams: 11/10/17 03:55 11/10/17 04:30 Laboratory results interpreted by me: 11/10/17 11/10/17 11/10/17 03:20 03:55 04:30 Hct 35.5 L Glucose 299 H Urine Glucose (UA) >=500 H Urine Ketones TRACE H Discharge - Discharge Clinical Impression: Lower abdominal pain Condition: Stable Additional Instructions: Your examination does not suggest a surgical abnormality at this time. No evidence of torsion, other than dehydration and somewhat elevated blood sugar your workup is normal. Because of your frequent symptoms with her bowels I recommend gastroenterology follow-up, see referral. Take Zofran for nausea, I recommend [id number] probiotics, start with bland food and slowly progress. Return if you worsen including returned vomiting, vomiting blood, black stools, fever, returned or severe abdominal pain, or any other concerning symptoms. Prescriptions: Ondansetron [Zofran Odt 4 mg Tablet] 1 - 2 tab PO Q4H PRN #15 tab.rapdis PRN Reason: For Nausea/Vomiting Referrals: ISABEL CARR MD [ACTIVE STAFF] - Follow up as needed SUSAN DAVIS MD [ACTIVE STAFF] - Follow up as needed
[2017-11-10 03:38] LABS: APPEARANCE,URINE CLEAR; BILIRUBIN,URINE NEGATIVE (NEGATIVE); COLOR,URINE STRAW; GLUCOSE, URINE >=500 mg/dL (NEGATIVE); KETONES,URINE TRACE mg/dL (NEGATIVE); LEUKOCYTE ESTERASE,URINE NEGATIVE (NEGATIVE); NITRITE,URINE NEGATIVE (NEGATIVE); PROTEIN,URINE NEGATIVE (NEGATIVE); URINE SPECIFIC GRAVITY 1.022; UROBILINOGEN,URINE NEGATIVE mg/dL (<2.0)
[2017-11-10] MEDS ORDERED: ONDANSETRON 4 MG TAB.RAPDIS PO ONE (03:40)
[2017-11-10] MEDS ORDERED: DIPHENHYDRAMINE HCL 25 MG CAPSULE PO ONE (03:40)
[2017-11-10 04:10] LABS: ABSOLUTE BASOPHILS # (AUTO) 0.1 10^3/uL (0.0-0.2); ABSOLUTE EOSINOPHILS # (AUTO) 0.3 10^3/uL (0.0-0.6); ABSOLUTE LYMPHOCYTES (AUTO) 1.6 10^3/uL (0.5-4.7); ABSOLUTE MONOCYTES (AUTO) 0.6 10^3/uL (0.1-1.4); ABSOLUTE NEUT (AUTO) 4.5 10^3/uL (1.7-8.2); BASOPHILS % (AUTO) 1.4 % (0-2); EOSINOPHILS % (AUTO) 4.1 % (0-6); HEMATOCRIT 35.5 % (36.0-47.0); HEMOGLOBIN 12.2 g/dL (12.0-15.5); MEAN CORPUSCULAR HEMOGLOBIN 29.2 pg (27.0-33.4); MEAN CORPUSCULAR HGB CONC 34.5 g/dL (32.0-36.0); MEAN CORPUSCULAR VOLUME 85 fl (80-97); MONOCYTES % (AUTO) 8.5 % (3-13); PLATELET COUNT 313 10^3/uL (150-450); RED BLOOD COUNT 4.19 10^6/uL (3.72-5.28); RED CELL DISTRIBUTION WIDTH 13.8 % (11.5-14.0); TOTAL CELLS COUNTED % (AUTO) 100 %; WHITE BLOOD COUNT 7.1 10^3/uL (4.0-10.5)
[2017-11-10 04:50] LABS: ALANINE AMINOTRANSFERASE 40 U/L (9-52); ALBUMIN 4.1 g/dL (3.5-5.0); ALKALINE PHOSPHATASE 49 U/L (38-126); ANION GAP 16 (5-19); ASPARTATE AMINO TRANSFERASE 33 U/L (14-36); BILIRUBIN,DIRECT 0.3 mg/dL (0.0-0.4); BILIRUBIN,TOTAL 0.3 mg/dL (0.2-1.3); BLOOD UREA NITROGEN 16 mg/dL (7-20); CALCIUM 9.7 mg/dL (8.4-10.2); CARBON DIOXIDE 23 mmol/L (22-30); CHLORIDE 102 mmol/L (98-107); GLUCOSE 299 mg/dL (75-110); POTASSIUM 3.9 mmol/L (3.6-5.0); SODIUM 140.9 mmol/L (137-145); TOTAL PROTEIN 7.7 g/dL (6.3-8.2)
--- NOTE | 2017-11-10 04:59 | RADIOLOGY REPORT (SQ) ---
EXAM DESCRIPTION: US TRANSVAGINAL COMPLETED DATE/TME: 11/10/2017 03:04 CLINICAL HISTORY: 42 years Female, right pelvic pain, vomiting Comparison: None. Technique: Transabdominal and transvaginal. LIMITATIONS: None. FINDINGS: Uterus and right ovary not visualized consistent with history of partial hysterectomy. 2.4-cm left ovary appears normal in size, shape, echotexture, and vascularity. No free fluid. IMPRESSION: No acute findings. Partial hysterectomy.
[2017-11-10] MEDS ORDERED: ONDANSETRON ODT 4 MG TAB (6 TAB/ER DISP) PO PRN (05:09)
[2017-11-10 05:39] VITALS: BP 142/92
== END 2017-11-10 05:39 | disposition home or self-care (01) ==
LOC: ER 02:10
DX: R10.30 Lower abdominal pain, unspecified (principal); R11.2 Nausea with vomiting, unspecified; Z90.710 Acquired absence of both cervix and uterus; Z90.49 Acquired absence of other specified parts of digestive tract; E11.9 Type 2 diabetes mellitus without complications; I10 Essential (primary) hypertension; J45.909 Unspecified asthma, uncomplicated
CPT/HCPCS: 96376; 99284; 96361; 96374; 96375; 36415; 85025; 80053; 81001; 76830; 93976; J1200; J2405; J7030